=== PATIENT | female | born 1985 | race Asian ===

== ENCOUNTER 2023-09-27 22:12 | Emergency (ER) | payer SELFPAY ==
[~2023-09-27] VITALS: Ht 162.6 cm; Wt 69.0 kg
[2023-09-27 23:00] VITALS: BP 118/71; PULSE 85; RESP 16; TEMP 98.2; O2SAT 97
[2023-09-28 01:32] LABS: CALCIUM 9.1 mg/dL (8.7-10.4); CARBON DIOXIDE 28 mEq/L (21-32); CHLORIDE 104 mEq/L (98-107); CREATININE 0.7 mg/dL (0.6-1.0); GLUCOSE 116 mg/dL (70-105); POTASSIUM 4.1 mEq/L (3.5-5.1); SODIUM 136 mEq/L (136-145); UREA NITROGEN BLOOD 10 mg/dL (9-23)
[2023-09-28 01:40] LABS: HCG SCREEN NEGATIVE
== END 2023-09-28 03:48 | disposition home or self-care (01) ==
LOC: ER 22:12
DX: R51.9 Headache, unspecified (principal); M79.641 Pain in right hand; Z98.890 Other specified postprocedural states; W18.30XA Fall on same level, unspecified, initial encounter; Y93.89 Activity, other specified; Y92.89 Other specified places as the place of occurrence of the external cause; Y99.8 Other external cause status
CPT/HCPCS: 36415; 72100; 73130; 80048; 84703; 99284